=== PATIENT | female | born 1955 | race African-American/Black ===

== ENCOUNTER 2018-04-28 15:28 | Emergency (ER) | payer SELFPAY ==
--- NOTE | 2018-04-28 15:45 | PDOC ---
Rapid Medical Evaluation Time Seen by Provider: 04/28/18 15:38 Medical Evaluation: Allergies Allergy/AdvReac Type Severity Reaction Status Date / Time morphine AdvReac Nausea Verified 04/28/18 15:39 04/28/18 15:39 have performed a brief in-person evaluation of this patient. The patient presents with a chief complaint of: acute on chronic R hip pain, told "worn cartilage" on imaging in past, on a coxib given to her by her PMD in [place]. Pain worsened 2 hrs ago while stooping, unable to bear weight Pertinent physical exam findings:Limping in ED I have ordered the following:xray, pain meds The patient will proceed to the ED for further evaluation 04/28/18 15:58 Discharge Disposition - Diagnosis Hip pain Qualifiers: Laterality: right Qualified Code(s): M25.551 - Pain in right hip - Referrals - Patient Instructions - Post Discharge Activity
[2018-04-28 15:46] VITALS: PULSE 73; TEMP 98.5; BMI 33.3
[2018-04-28] MEDS ORDERED: KETOROLAC TROMETHAMINE 30 MG/1 ML VIAL IM ONE (15:56)
[2018-04-28] MEDS ORDERED: ACETAMINOPHEN 325 MG TABLET (FP) PO ONE (15:56)
[2018-04-28] MEDS ORDERED: KETOROLAC TROMETHAMINE 30 MG/1 ML VIAL ONE (16:27)
[2018-04-28] MEDS ORDERED: dilTIAZem HCL 30 MG TABLET (FP) PO ONE (16:55)
--- NOTE | 2018-04-28 17:13 | PDOC ---
History of Present Illness - General Chief Complaint: Pain, Acute Stated Complaint: RT HIP PAIN Time Seen by Provider: 04/28/18 15:38 - History of Present Illness Initial Comments: 62-year-old female with a past medical history significant for hypertension presents for evaluation of right hip pain. Her pain is atraumatic. She states she was taking a bath and when she went to get up she felt pain in her right hip. She points to the right groin as the area of her discomfort she describes her pain as sharp exacerbated with motion and weightbearing relieved with rest and free of radiation. She states she's been off for hypertension medicine for the last 2 years as her blood pressures been well-controlled where she lives in [place]. She denies any other associated symptoms no headache nausea vomiting weakness or visual changes. 04/28/18 16:56 Past History - Past Medical History Allergies/Adverse Reactions: Allergies Allergy/AdvReac Type Severity Reaction Status Date / Time morphine AdvReac Nausea Verified 04/28/18 15:39 Home Medications: Ambulatory Orders NK [No Known Home Medication] 04/28/18 COPD: No Other medical history: ARTHRITIS - Suicide/Smoking/Psychosocial Hx Smoking History: Never smoked Review of Systems - Review of Systems Musculoskeletal: Yes: See HPI, Joint Pain All Other Systems: Reviewed and Negative *Physical Exam - Vital Signs Last Vital Signs Temp Pulse Resp BP Pulse Ox 98.5 F 73 19 201/119 99 04/28/18 15:39 04/28/18 15:39 04/28/18 15:39 04/28/18 15:39 04/28/18 15:39 - Physical Exam Comments: GENERAL: The patient is awake, alert, and fully oriented, in no acute distress. HEAD: Normal with no signs of trauma. EYES: Pupils equal, round and reactive to light, extraocular movements intact, sclera anicteric, conjunctiva clear. ENT: Ears normal, nares patent, oropharynx clear without exudates. Moist mucous membranes. NECK: Normal range of motion, supple without lymphadenopathy, JVD, or masses. LUNGS: Breath sounds equal, clear to auscultation bilaterally. No wheezes, and no crackles. HEART: Regular rate and rhythm, normal S1 and S2 without murmur, rub or gallop. ABDOMEN: Soft, nontender, normoactive bowel sounds. No guarding, no rebound. No masses. EXTREMITIES: Normal range of motion except for the right hip. The right hip has decreased range of motion with groin pain. No edema. No clubbing or cyanosis. No cords, erythema, or tenderness. NEUROLOGICAL: Cranial nerves II through XII grossly intact. Normal speech, normal gait. PSYCH: Normal mood, normal affect. SKIN: Warm, Dry, normal turgor, no rashes or lesions noted. 04/28/18 17:25 ED Treatment Course - LABORATORY CBC & Chemistry Diagram: 04/28/18 17:15 04/28/18 17:15 - Medications Given in the ED: ED Medications Discontinued Medications Generic Name Dose Route Start Last Admin Trade Name Freq PRN Reason Stop Dose Admin Acetaminophen 650 mg 04/28/18 15:56 04/28/18 16:01 Tylenol - PO 04/28/18 15:57 650 mg ONCE ONE Administration Ketorolac Tromethamine 30 mg 04/28/18 15:56 04/28/18 16:33 Toradol Injection - IM 04/28/18 15:57 30 mg ONCE ONE Administration Medical Decision Making - Medical Decision Making Her blood pressure came down with Toradol I will give her dose of Cardizem to bring it down further is now 168/98. I'll also get a CT scan of her right hip 04/28/18 17:25 04/28/18 18:[address] scan secondary to pain. I will have her transfered to the main ER *DC/Admit/Observation/Transfer Diagnosis at time of Disposition: Hypertension Hip pain Qualifiers: Laterality: right Qualified Code(s): M25.551 - Pain in right hip - Referrals - Patient Instructions - Post Discharge Activity
[2018-04-28] MEDS ORDERED: dilTIAZem HCL 30 MG TABLET (FP) ONE (17:15)
[2018-04-28 17:21] LABS: BASO % 0.8 % (0-2.0); HEMATOCRIT 36.8 % (32.4-45.2); HEMOGLOBIN 12.7 GM/dL (10.7-15.3); LYMPH % 38.7 % (8-40); MCH 27.8 pg (25.7-33.7); MCHC 34.6 g/dl (32.0-36.0); MEAN CELL VOLUME 80.5 fl (80-96); MEAN PLT VOLUME 7.3 fl (7.5-11.1); MONO % 9.9 % (3.8-10.2); NEUT % 48.6 % (42.8-82.8); PLATELET COUNT 249 K/MM3 (134-434); RBC 4.57 M/mm3 (3.60-5.2); RDW 14.3 % (11.6-15.6); WHITE BLOOD COUNT 5.3 K/mm3 (4.0-10.0)
[2018-04-28 17:26] VITALS: BP 168/98
[2018-04-28 17:53] LABS: ALBUMIN 4.1 g/dl (3.4-5.0); ALK PHOS 122 U/L (45-117); ANION GAP 9 (8-16); BILIRUBIN,TOTAL 1.1 mg/dL (0.2-1.0); BLOOD UREA NITROGEN 15 mg/dL (7-18); CALCIUM 9.2 mg/dL (8.5-10.1); CHLORIDE 103 mmol/L (98-107); CO2 27 mmol/L (21-32); CREATININE 0.9 mg/dL (0.55-1.02); GLUCOSE,RANDOM 92 mg/dL (74-106); POTASSIUM 4.2 mmol/L (3.5-5.1); SGOT/AST 24 U/L (15-37); SGPT/ALT 25 U/L (12-78); SODIUM 139 mmol/L (136-145); TOT PROT 8.7 g/dl (6.4-8.2)
--- NOTE | 2018-04-28 21:14 | PDOC ---
*Physical Exam - Vital Signs Last Vital Signs Temp Pulse Resp BP Pulse Ox 98.5 F 73 19 168/98 99 04/28/18 15:39 04/28/18 15:39 04/28/18 15:39 04/28/18 17:25 04/28/18 15:39 - Physical Exam Comments: 04/28/18 21:27 Pt was evaluated in [facility] for complaint of R hip pain - she endorses chronic R hip pain but it worsened today when she bent downt ot od soething and stood up again. Pt denies any fever/chills, falls or injuries. Pt had an xray that was neg, had a CT that was noted for a R hip effusion w/o fx. The pt feels improved is able to ambulate with some assitance. was given a cane and will give pt ortho fu when she goes home to [facility] and pt is comfortble with the plan. I discussed the physical exam findings, ancillary test results and final diagnoses with the patient. I answered all of the patient's questions. The patient was satisfied with the care received and felt comfortable with the discharge plan and treatment plan. The patient will call their primary care physician within 24 hours to arrange follow-up and will return to the Emergency Department with any new, persistent or worsening symptoms. ED Treatment Course - LABORATORY CBC & Chemistry Diagram: 04/28/18 17:15 04/28/18 17:15 - ADDITIONAL ORDERS Additional order review: Laboratory Results 04/28/18 17:15 Sodium 139 Potassium 4.2 Chloride 103 Carbon Dioxide 27 Anion Gap 9 BUN 15 Creatinine 0.9 Creat Clearance w eGFR > 60 Random Glucose 92 Calcium 9.2 Total Bilirubin 1.1 H AST 24 ALT 25 Alkaline Phosphatase 122 H Total Protein 8.7 H Albumin 4.1 04/28/18 17:15 RBC 4.57 MCV 80.5 MCHC 34.6 RDW 14.3 MPV 7.3 L Neutrophils % 48.6 Lymphocytes % 38.7 Monocytes % 9.9 Eosinophils % 2.0 Basophils % 0.8 - Medications Given in the ED: ED Medications Discontinued Medications Generic Name Dose Route Start Last Admin Trade Name Freq PRN Reason Stop Dose Admin Acetaminophen 650 mg 04/28/18 15:56 04/28/18 16:01 Tylenol - PO 04/28/18 15:57 650 mg ONCE ONE Administration Diltiazem HCl 30 mg 04/28/18 16:55 04/28/18 17:25 Cardizem - PO 04/28/18 16:56 30 mg ONCE ONE Administration Ketorolac Tromethamine 30 mg 04/28/18 15:56 04/28/18 16:33 Toradol Injection - IM 04/28/18 15:57 30 mg ONCE ONE Administration *DC/Admit/Observation/Transfer Diagnosis at time of Disposition: Hip pain Qualifiers: Laterality: right Qualified Code(s): M25.551 - Pain in right hip Hypertension Qualifiers: Hypertension type: unspecified Qualified Code(s): I10 - Essential (primary) hypertension - Discharge Dispostion Disposition: HOME Condition at time of disposition: Improved Decision to Admit order: No - Referrals Referrals: Jason Panda MD [Staff Physician] - - Patient Instructions Printed Discharge Instructions: DI for Leg Pain Additional Instructions: Return to the emergency department immediately with ANY new, persistent or worsening symptoms. TAke tylenol for your pain You MUST call and follow up with your doctor or orthopedics doctor for further evaluation of your symptoms. Results were discussed with you. Please make sure your doctor reviews the results of your emergency evaluation. A copy of your cat scan was included, please review this with your doctor. Print Language: DANISH - Post Discharge Activity
== END 2018-04-28 22:28 | disposition home or self-care (01) ==
LOC: JER 15:28
PROC: 3E0233Z Introduction of Anti-inflammatory into Muscle, Percutaneous Approach (ICD-10-PCS; principal; 2018-04-28)
DX: I10 Essential (primary) hypertension (principal); M25.551 Pain in right hip; M12.9 Arthropathy, unspecified
CPT/HCPCS: 36415; 73523-TC-FY; 73700-TC-RT; 80053; 85025; 99282-25